=== PATIENT | female | born 1940 | race Caucasian/White ===

== ENCOUNTER 2016-12-02 07:59 | Emergency (ER) | payer MEDICARE ==
[2016-12-02 08:10] VITALS: BMI 25.5
[2016-12-02 08:11] VITALS: TEMP 98
--- NOTE | 2016-12-02 08:14 | EDPRACDOC ---
- General Chief Complaint: Fall Stated Complaint: FALL (HAND PAIN) Time Seen by Provider: 12/02/16 08:12 Information Source: Patient - History of Present Illness Onset: THIS AM HPI: PT WAS SITTING ON STOOL AT HOME. IT SLIPPED, FELL BACKWARD. HURT RIGHT WRIST, LOWER BACK. PAIN IN WRIST MILD. PT IS RIGHT HANDED. Pain Severity: Reports: Mild Allergies/Adverse Reactions: Allergies bacitracin [From Neosporin ([id number])] Allergy (Verified 12/02/16 08:07) Unknown bacitracin zinc [From Neosporin ([id number])] Allergy (Verified 12/02/16 08: 07) Unknown celecoxib [From Celebrex] Allergy (Verified 12/02/16 08:07) Unknown hydrocodone Allergy (Verified 12/02/16 08:07) Nausea/Vomiting menthol [From Icy Hot No Mess] Allergy (Verified 12/02/16 08:07) Unknown neomycin sulfate [From Neosporin ([id number])] Allergy (Verified 12/02/16 08: 07) Unknown oxycodone Allergy (Verified 12/02/16 08:07) Unknown piroxicam [From Feldene] Allergy (Verified 12/02/16 08:07) Unknown polymyxin B [From Neosporin ([id number])] Allergy (Verified 12/02/16 08:07) Unknown Home Medications: Ambulatory Orders Aspirin [Ecotrin] 81 mg PO DAILY #30 tablet. 03/25/16 Atenolol [Tenormin] 50 mg PO DAILY 03/25/16 Gabapentin 300 mg PO QID 03/25/16 Levothyroxine Sodium 100 mcg PO DAILY 03/25/16 Omeprazole 40 mg PO DAILY 03/25/16 Topiramate 100 mg PO DAILY 03/25/16 Tramadol HCl 100 mg PO DAILY 03/25/16 Zolpidem Tartrate [Ambien] 10 mg PO QHS 03/25/16 Iron Polysaccharide Complex [Nu-Iron 150] 1 cap PO DAILY 12/02/16 ED Past Medical History - History Reviewed Yes Nurses notes reviewed and agree except as marked - Patient Medical History Cardiac History: Reports: Hypertension GI/ History: Reports: Gastroesophageal Reflux Surgical History: Reports: Cholecystectomy - Social Medical History Smoking Status: Never smoker EDM Review of Systems - Review of Systems ROS Negative Except as Marked: Yes All systems reviewed and were negative except as marked Constitutional: No Symptoms Reported Eyes: No Symptoms Reported Respiratory: No Symptoms Reported Cardiovascular: No Symptoms Reported Gastrointestinal: No Symptoms Reported Genitourinary: No Symptoms Reported Integumentary: No Symptoms Reported - Physical Exam Constitutional: Alert (Awake), No apparent distress Oriented to: Time, Person, Place Last recorded Vital Signs: Last Vital Signs Temp 98.0 F 12/02/16 08:07 Pulse 75 12/02/16 08:07 Resp 18 12/02/16 08:07 BP 204/88 H 12/02/16 08:07 Pulse Ox 100 12/02/16 08:07 Oxygen Pulse Oxygen Saturation 100 O2 Device Oxygen Flow Rate Fraction of Inspired Oxygen ( FIO2) - HEENT Head: Normal ( normocephalic) Eye Exam: Normal (PERRL, EOMI, Sclera white) Oropharynx: Normal (Pharynx:Moist without exudate,Gums-no swelling) Nose: No Symptoms Reported (septum midline) Neck: Normal (FROM, trachea at midline) - Respiratory/Cardiovascular Respiratory: Normal - CTA (BBS clear to auscultation without adventitious sounds ) Cardiovascular: Normal (RRR without murmur, gallop or rub) - Musculoskeletal Back: Normal (Non-Tender) Extremities: Normal (Normal tone, Pulses 2+ No cyanosis or edema, FROM), Other ( RIGHT WRIST FULL ROM. SMALL AREA OF SOFT EDEMA BASE OF 2ND METACARPAL. NO SNUFF BOX TTP) - Integumentary Skin: Normal, Warm, Dry Lymphatics: Normal (no adenopathy) - Neurologic Memory Impaired: Normal Motor Function: Normal (Normal tone, Pulses 2+ No cyanosis or edema, FROM) Cranial Nerve: Normal (CN II-X11 intact sensation, strength 5/5) Cerebellar: Normal Mood Description: Normal Perception: Normal ED Procedures - Splinting 1st splint Location: RIGHT WRIST Hand-Made Type: orthoglass Splint: thumb spica Pre-Proc Neuro Vasc Exam: normal Post-Proc Neuro Vasc Exam: normal Decision Time to Discharge: 09:25 - Departure Yes I personally saw and evaluated the patient. Disposition: Home Condition: Stable Final Diagnosis: SPLINT PLACED BY HITCHCOCK Fracture of right distal radius Qualifiers: Encounter type: initial encounter Fracture type: closed Fracture morphology: other intra-articular Qualified Code(s): S52.571A - Other intraarticular fracture of lower end of right radius, initial encounter for closed fracture Instructions: RICE: Routine Care for Injuries, Wrist Fracture in Adults (ED) Education/Counseling Given To: Patient Education/Counseling Given Regarding: Diagnosis, Treatment, Prognosis, Follow Up Referrals: Stevo Yoon MD [Staff Physician] - 1-2 days Forms: Excuse Note
--- NOTE | 2016-12-02 09:08 | DIRPT ---
CLINICAL DATA: 76-year-old female with right wrist pain after falling while putting her shoes on for work EXAM: RIGHT WRIST - COMPLETE 3+ VIEW COMPARISON: None. FINDINGS: Acute mildly impacted and dorsally tilted distal radius fracture. Lucency along the articular surface consistent with articular involvement. There may be some widening of the scapholunate interspace raising concern for scapholunate ligament injury. Lucencies in the lunate likely represents degenerative subchondral cysts. No evidence of scaphoid fracture. Mild degenerative change at the radiocarpal and STT joints. IMPRESSION: 1. Acute mildly impacted and dorsally tilted distal radius fracture with articular surface involvement. 2. Widening of the scapholunate interspace raises concern for scapholunate ligament injury. This may be acute or chronic. 3. Degenerative subchondral cysts noted incidentally in the lunate. 4. 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 Electronically Signed By: Otis Chacko M.D. On: 12/02/2016 09:06
[2016-12-02 09:32] VITALS: BP 169/79; PULSE 76
== END 2016-12-02 09:29 | disposition home or self-care (01) ==
LOC: ED 07:59
DX: S52.571A Other intraarticular fracture of lower end of right radius, initial encounter for closed fracture (principal); W07.XXXA Fall from chair, initial encounter; Y93.9 Activity, unspecified
CPT/HCPCS: 29125; 99283